=== PATIENT | male | born 2000 | race American Indian/Alaskan Native ===

== ENCOUNTER 2022-04-11 15:46 | Emergency (ER) | payer SELFPAY ==
[2022-04-11] MEDS ORDERED: HYDROcodone/ACETAMINOPHEN 5-325 MG TAB PO ONE (21:27)
[2022-04-11] MEDS ORDERED: SODIUM CHLORIDE 0.9% IRR 500 ML BOTTLE IR ONE (21:29)
[2022-04-11] MEDS ORDERED: LIDOCAINE 1%/EPINEPHRINE 1:100,000 VIAL (20 ML) INFILTRATI ONE (21:29)
[2022-04-11] MEDS ORDERED: LIDOCAINE (2%) 20 MG/1 ML VIAL 20 ML MDV INFILTRATI ONE (21:34)
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
[2022-04-11] MEDS ORDERED: LIDOCAINE-MPF (1%) 10 MG/1 ML VIAL 5 ML INFILTRATI ONE (21:51)
[2022-04-11 23:34] VITALS: BP 137/84
== END 2022-04-11 23:34 | disposition home or self-care (01) ==
LOC: ED 15:46
DX: L02.416 Cutaneous abscess of left lower limb (principal); F10.20 Alcohol dependence, uncomplicated; F12.90 Cannabis use, unspecified, uncomplicated
CPT/HCPCS: 10060; 87116; 99282; J3490